=== PATIENT | male | born 2000 | race Two or more races ===

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

== ENCOUNTER 2020-04-14 17:55 | Emergency (ER) | payer MEDICAID ==
[~2020-04-14] VITALS: Ht 172.7 cm; Wt 78.8 kg
--- NOTE | 2020-04-14 18:41 | NUR ---
PT C/O CHEST 7 THAT STARTED AT 1530. PT STATES ACHING PAIN THAT IS MIDSTERNUM, THAT DOES NOT RADIATE AND WORSENS WITH MOVEMENT. PT ALSO STATES SOB, HEADACHE, DIZZINESS AND NAUSEA. PT STATES HE HAS HX OF ANXIETY AND JUST STARTED HYDROXYZINE. LAST DOSE 1630.
--- NOTE | 2020-04-14 18:51 | NUR ---
REPORT FROM HALI QUIÑONEZ.
--- NOTE | 2020-04-14 19:19 | NUR ---
Note lona in EDM - 04/14/20 at 1941 by IDRIS PT MEDICATED PER MAR, PT SLEEPING IN NAD, EVEN AND UNLABORED RESPIRATIONS. VSS.
[2020-04-14 19:21] LABS: BASOPHILS % (AUTO) 1 % (0-1); EOSINOPHILS % (AUTO) 1 % (1-7); LYMPHOCYTES % (AUTO) 15 % (22-44); MEAN CORPUSCULAR HEMOGLOBIN 29.6 pg (27.5-34.5); MEAN CORPUSCULAR HGB CONC 33.8 g/dL (33.2-36.2); MEAN PLATELET VOLUME 8.7 fL (7.4-10.4); MONOCYTES % (AUTO) 8 % (2-9); NEUTROPHILS % (AUTO) 76 % (42-75); PLATELET COUNT 288 x10^3/uL (130-400); RED BLOOD COUNT 5.07 x10^6/uL (4.38-5.82); RED CELL DISTRIBUTION WIDTH 12.6 % (9.4-14.8)
[2020-04-14 19:23] LABS: MD NO
[2020-04-14] MEDS ORDERED: THIAMINE 100MG TABLET ONE (19:26)
[2020-04-14] MEDS ORDERED: THIAMINE 100MG TABLET PO ONE (19:30)
[2020-04-14 19:31] LABS: ALBUMIN 4.4 g/dL (3.4-5.0); ANION GAP 6 mmol/L (5-15); CALCIUM 10.1 mg/dL (8.5-10.1); CHLORIDE 108 mmol/L (98-107); CREATININE 1.14 mg/dL (0.7-1.3)
[2020-04-14 19:54] VITALS: BP 123/67
== END 2020-04-14 20:34 | disposition home or self-care (01) ==
LOC: ED 18:29
DX: F41.1 Generalized anxiety disorder (principal); R42 Dizziness and giddiness; R06.02 Shortness of breath; I45.10 Unspecified right bundle-branch block; R07.9 Chest pain, unspecified
CPT/HCPCS: 36415; 80048; 82040; 85025; 93005; 99284

== ENCOUNTER 2020-05-27 00:22 | Emergency (ER) | payer MEDICAID ==
[~2020-05-27] VITALS: Ht 172.7 cm; Wt 75.0 kg
[2020-05-27 01:15] LABS: BASOPHILS % (AUTO) 1 % (0-1); EOSINOPHILS % (AUTO) 1 % (1-7); LYMPHOCYTES % (AUTO) 19 % (22-44); MD NO; MEAN CORPUSCULAR HEMOGLOBIN 29.5 pg (27.5-34.5); MEAN CORPUSCULAR HGB CONC 34.3 g/dL (33.2-36.2); MEAN PLATELET VOLUME 8.1 fL (7.4-10.4); MONOCYTES % (AUTO) 8 % (2-9); NEUTROPHILS % (AUTO) 72 % (42-75); PLATELET COUNT 238 x10^3/uL (130-400); RED BLOOD COUNT 5.05 x10^6/uL (4.38-5.82); RED CELL DISTRIBUTION WIDTH 12.4 % (9.4-14.8)
[2020-05-27 01:22] LABS: ALANINE AMINOTRANSFERASE 31 U/L (12-78); ALBUMIN 4.4 g/dL (3.4-5.0); ANION GAP 8 mmol/L (5-15); CALCIUM 9.3 mg/dL (8.5-10.1); CHLORIDE 107 mmol/L (98-107); CREATININE 1.07 mg/dL (0.7-1.3)
[2020-05-27 01:25] LABS: ALKALINE PHOSPHATASE 94 U/L (45-117); BILIRUBIN,TOTAL 0.4 mg/dL (0.2-1.0); TOTAL PROTEIN 8.2 g/dL (6.4-8.2)
--- NOTE | 2020-05-27 01:47 | NUR ---
VSS. PT ABLE TO AMBULATE TO BATHROOM.
[2020-05-27 01:48] VITALS: BP 129/79
--- NOTE | 2020-05-27 02:12 | NUR ---
PT VERBALIZED UNDERSTANDING OF DISCHARGE INSTRUCTIONS. VSS. AMBULATORY AT DISCHARGE.
== END 2020-05-27 02:24 | disposition home or self-care (01) ==
LOC: ED 01:26
DX: F10.10 Alcohol abuse, uncomplicated (principal); F13.10 Sedative, hypnotic or anxiolytic abuse, uncomplicated; F14.10 Cocaine abuse, uncomplicated; F17.210 Nicotine dependence, cigarettes, uncomplicated; R11.2 Nausea with vomiting, unspecified; F41.9 Anxiety disorder, unspecified; Y90.0 Blood alcohol level of less than 20 mg/100 ml
CPT/HCPCS: 36415; 80053; 82330; 85025; 93005; 99284; 99406

== ENCOUNTER 2021-02-25 13:35 | Emergency (ER) | payer MEDICAID ==
[~2021-02-25] VITALS: Ht 172.7 cm; Wt 89.0 kg
[2021-02-25 13:54] VITALS: BP 125/74
--- NOTE | 2021-02-25 17:59 | NUR ---
[id number]
== END 2021-02-25 18:04 | disposition left against medical advice (07) ==
LOC: ED 17:55
DX: M25.571 Pain in right ankle and joints of right foot (principal)
CPT/HCPCS: 99283